=== PATIENT | female | born 1990 | race Caucasian/White ===

== ENCOUNTER → 2017-03-21 | Outpatient (REF) | payer MEDICAID, OTHER ==
[2017-03-22 19:53] LABS: CONTROL LINE UCG INT CTR LINE PRESENT
== END ==
LOC: M SFHCCAPE 14:34
PROVIDERS: ATTEND Physician Assistant
DX: R10.2 Pelvic and perineal pain (principal)

== ENCOUNTER → 2017-03-23 | Outpatient (CLI) | payer MEDICAID, OTHER ==
--- NOTE | 2017-03-23 11:57 | REP ---
Pelvic ultrasound including transabdominal, endovaginal and Doppler ultrasound assessment: The bladder is suboptimally distended. The uterus is anteverted and normal size measuring 6.4-0.5 x 2.9 cm. The endometrium is not thickened measuring 5 mm. The ovaries are normal size. Right ovary measures 3.8 x 2.6 x 3.2 cm. Left ovary measures 3.5 at 2.3 x 2.0 cm. There is a dominant 2.3 cm right ovarian follicle. There is a 1.1 cm left ovarian follicle. There is vascular flow in both ovaries. Doppler resistive index of intraparenchymal arteries on the right is 0.45 on the left 0.43. Impression: There is a 2.3 cm dominant right ovarian follicle. The 1.1 cm left ovarian follicle. Essentially negative pelvic ultrasound. Signed by Baljit Burris MD 03/23/2017 11:48 A
== END ==
LOC: M RAD 10:52
PROVIDERS: ATTEND Physician Assistant
DX: R10.2 Pelvic and perineal pain (principal)

== ENCOUNTER 2017-08-27 15:50 | Emergency (ER) | payer OTHER, MEDICAID ==
[2017-08-27] MEDS: NS 1,000 ML IV (18:42)
[2017-08-27 18:57] LABS: BASO % 0.5 % (0.0-1.0); EOS # 0.2 10^3/uL (0.0-0.50); EOS % 2.5 % (0.0-3.0); IMMATURE GRANULOCYTE % 0.2 % (0-0); LYMPH # 2.3 10^3/uL (1.5-6.5); LYMPH % 28.2 % (24.0-44.0); MEAN CORPUSCULAR HEMOGLOBIN 30.2 pg (27.0-33.0); MEAN CORPUSCULAR HGB CONC 33.2 g/dl (32.0-36.5); MONO # 0.8 10^3/uL (0.0-0.8); MONO % 9.7 % (0.0-5.0); NEUTROPHILS # 4.7 10^3/uL (1.8-7.7); NEUTROPHILS % 58.9 % (36.0-66.0); PLATELET COUNT, AUTOMATED 410 10^3/uL (150-450)
[2017-08-27 18:58] LABS: CONTROL LINE UCG INT CTR LINE PRESENT
[2017-08-27 19:16] LABS: ALBUMIN 4.3 GM/DL (3.2-5.2); ALBUMIN/GLOBULIN RATIO 1.16 (1.00-1.93); ALKALINE PHOSPHATASE 69 U/L (45-117); ALT/SGPT 23 U/L (12-78); ANION GAP 7 MEQ/L (8-16); AST/SGOT 18 U/L (7-37); BILIRUBIN,TOTAL 0.3 MG/DL (0.2-1.0); BLOOD UREA NITROGEN 15 MG/DL (7-18); CALCIUM LEVEL 8.6 MG/DL (8.5-10.1); CARBON DIOXIDE LEVEL 27 MEQ/L (21-32); CHLORIDE LEVEL 106 MEQ/L (98-107); CREATININE FOR GFR 0.83 MG/DL (0.55-1.02); GLOMERULAR FILTRATION RATE > 60.0 (>60); GLUCOSE, FASTING 80 MG/DL (70-105); POTASSIUM SERUM 3.5 MEQ/L (3.5-5.1); SODIUM LEVEL 140 MEQ/L (136-145)
[2017-08-27] MEDS ORDERED: ISOVUE-370 76% 100ML VIAL (Q9967) As Ordered (19:26)
[2017-08-27] MEDS: MAGNESIUM CITRATE 300 ML BTL PO (21:05)
[2017-08-27] MEDS: hydrOXYzine 25 MG TAB PO (21:06)
== END 2017-08-27 21:12 | disposition home or self-care (01) ==
LOC: M ED 15:50
DX: R10.9 Unspecified abdominal pain (principal); K59.00 Constipation, unspecified; F41.9 Anxiety disorder, unspecified; Z72.0 Tobacco use
CPT/HCPCS: Q9967

== ENCOUNTER 2018-02-07 21:32 | Emergency (ER) | payer OTHER ==
[2018-02-07 22:33] LABS: KETONE, URINE AUTO RFX 1+ mg/dL (NEGATIVE); LEUKOCYTE ESTERASE UR AUTO RFX 2+ (NEGATIVE); MUCUS, URINE RFX SMALL (NEGATIVE); NITRITE, URINE AUTO RFX NEGATIVE (NEGATIVE); RBC, URINE AUTO RFX 32 /HPF (0-3); SPECIFIC GRAVITY UR AUTO RFX 1.042 (1.002-1.035); SQUAM EPITHELIAL CELL UR AURFX 6 /HPF (0-6); WBC, URINE AUTO RFX 25 /HPF (0-3)
[2018-02-08] MEDS: CEPHALEXIN 500 MG CAP PO (02:15)
[2018-02-08] MEDS: valACYclovir HCL 500 MG TAB PO (02:15)
[2018-02-08] MEDS: PHENAZOPYRIDINE 100 MG TAB PO (02:15)
== END 2018-02-08 02:39 | disposition home or self-care (01) ==
LOC: M ED 21:32
DX: A60.00 Herpesviral infection of urogenital system, unspecified (principal); N39.0 Urinary tract infection, site not specified; J03.90 Acute tonsillitis, unspecified; Z72.0 Tobacco use; Z79.899 Other long term (current) drug therapy
CPT/HCPCS: 81001

== ENCOUNTER → 2019-02-19 | Outpatient (CLI) | payer OTHER ==
[~2019-02-19] MED LIST: AMOX500C; KEFL500C17 PO; NAPR-885; PYRI1TAB5 PO; VALA1TAB2 PO; ZOFR4TAB14
[2019-02-21 00:06] LABS: HSV IgM TYPES 1&2 <0.91 Ratio (0.00-0.90); HSV TYPE I IgG SPECIFIC <0.91 index (0.00-0.90); HSV TYPE II IgG SPECIFIC 9.21 index (0.00-0.90)
== END ==
LOC: M SMT 11:09
PROVIDERS: ATTEND Advanced Practice Midwife
DX: O36.80X0 Pregnancy with inconclusive fetal viability, not applicable or unspecified (principal); Z3A.00 Weeks of gestation of pregnancy not specified; Z11.3 Encounter for screening for infections with a predominantly sexual mode of transmission

== ENCOUNTER → 2019-02-21 | Outpatient (CLI) | payer OTHER | LOC: M SMT 10:48 | PROVIDERS: ATTEND Advanced Practice Midwife | DX: O36.80X0 Pregnancy with inconclusive fetal viability, not applicable or unspecified (principal); Z3A.00 Weeks of gestation of pregnancy not specified ==

== ENCOUNTER 2019-03-01 14:28 | Day surgery (SDC) | payer MEDICAID, OTHER, SELFPAY ==
[~2019-03-01] VITALS: Ht 157.5 cm; Wt 66.7 kg
[~2019-03-01 14:28] MED LIST changes: +DOXYCYCLINE HYCLATE 100 MG in D5W MINI-BAG PLUS 100 ML IV ONE; +LIDOCAINE 1% MDV 20ML VIAL SQ PRN; +LR 1,000 ML IV ONE
[2019-03-01] MEDS ORDERED: MIDAZOLAM INJ 2 MG/2 ML VIAL (J2250) As Ordered ONE (14:53)
[2019-03-01] MEDS ORDERED: dexameTHASONE 4 MG/ML 1ML VIAL (J1100) As Ordered ONE (14:54)
[2019-03-01] MEDS ORDERED: LIDOCAINE 2% INJ 100 MG/5 ML SDV (FOR ANES.) As Ordered ONE (14:54)
[2019-03-01] MEDS ORDERED: PROPOFOL 200 MG/20 ML VIAL As Ordered ONE (14:54)
[2019-03-01] MEDS ORDERED: fentaNYL 100 MCG/2 ML INJECTION (J3010) As Ordered ONE (14:54)
[2019-03-01] MEDS ORDERED: KETOROLAC 60 MG/2 ML VIAL (J1885) As Ordered ONE (14:54)
[2019-03-01 14:56] LABS: HEMATOCRIT 37.6 % (36.0-47.0); HEMOGLOBIN 12.7 g/dl (12.0-15.5); MEAN CORPUSCULAR HGB CONC 33.8 g/dl (32.0-36.5); MEAN CORPUSCULAR VOLUME 88.9 fl (80.0-96.0); PLATELET COUNT, AUTOMATED 345 10^3/uL (150-450); RED BLOOD COUNT 4.23 10^6/uL (4.00-5.40); WHITE BLOOD COUNT 10.4 10^3/uL (4.0-10.0)
[2019-03-01] MEDS ORDERED: METOCLOPRAMIDE INJ 10MG/2ML VIAL (J2765) As Ordered ONE (14:56)
[2019-03-01] MEDS ORDERED: ONDANSETRON 4MG/2ML VIAL (J2405) As Ordered ONE (14:59)
[2019-03-01] MEDS ORDERED: SILVER NITRATE APPLICATOR As Ordered ONE (15:33)
[2019-03-01] MEDS ORDERED: DOXYCYCLINE HYCLATE 100 MG TAB PO ONE (17:00)
[2019-03-01] MEDS ORDERED: PERCOCET 5MG/325MG TAB PO PRN (17:00)
[2019-03-01] MEDS ORDERED: ONDANSETRON 4MG/2ML VIAL (J2405) IV PRN (17:00)
[2019-03-01] MEDS ORDERED: fentaNYL 100 MCG/2 ML INJECTION (J3010) IV PRN (17:00)
[2019-03-01] MEDS ORDERED: HYDROMORPHONE HCL 0.5 MG/ 0.5 ML SYRINGE (J1170 PER 1) IV PRN (17:00)
[2019-03-01] MEDS ORDERED: LR 1,000 ML IV SCH ×2 (17:00)
--- NOTE | 2019-03-01 17:52 | RO ---
DATE OF PROCEDURE: 03/01/2019 PREOPERATIVE DIAGNOSIS: Missed AB, anembryonic demise POSTOPERATIVE DIAGNOSIS: Missed AB, anembryonic demise INTRAOPERATIVE FINDINGS: Intrauterine tissue consistent with products of conception. PROCEDURE PERFORMED: Suction D and C. SURGEON: Dr. Jolanta DO MATERIAL SPREADER: Omar Arellano, PGY-III SECOND MATERIAL SPREADER: Quan Guo OMS-III ANESTHESIA: General via LMA endotracheal. SPECIMENS TO PATHOLOGY: Products of conception plus intrauterine tissue. ESTIMATED BLOOD LOSS: 75 mL. FLUIDS REPLACED: 300 mL lactated Ringer's. DRAINS: In and out catheter 50 mL. COMPLICATIONS: None. PREOPERATIVE DIAGNOSIS: Preoperative antibiotics doxycycline 100 mg IV times 1. INDICATION: The patient is 28-year-old with a recently diagnosed missed / anembryonic gestation / blighted ovum. The expectant, medical and surgical management options were reviewed. She has elected proceed with surgical management via suction D & C. PROCEDURE: The patient was counseled and consented on the risks, benefits, indications, alternative procedure. Informed consent was obtained. She was taken to operating room with an IV running placed on operating table in dorsal supine position. General anesthesia was administered and the airway secured without any difficulty. She was placed in the high lithotomy position. She was prepared and draped in the normal sterile fashion. A time-out was performed per protocol. The bladder was drained with an in-and-out sterile catheter. The sterile speculum placed with good visualization of the cervix. The anterior lip of cervix grasped single-tooth tenaculum and downward traction was applied. The cervix was sequentially dilated up to a number #20. The size 9 Vacurette was then placed transcervical into the intrauterine cavity and suction was applied. Multiple passes of the Vacurette were performed until there was minimal blood and tissue return. The Vacurette was removed. This sharp curette was placed transcervical into the intracavity a sharp curettage performed throughout the cavity until gritty texture was noted throughout one additional pass of the Vacurette was performed with minimal tissue and blood return. The Vacurette was removed. Minimal bleeding from the cervical os was noted. The single-tooth tenaculum was removed. Tenaculum sites were noted be hemostatic. All instruments were removed from vagina. Sponge, needle and sponge counts were correct per protocol. The patient was transferred. The patient tolerated the entire very well. She was transferred back in good stable condition. GURPREET
[2019-03-01 18:10] VITALS: BP 115/72
== END 2019-03-01 18:10 | disposition home or self-care (01) ==
LOC: M SDC 14:28
PROVIDERS: ATTEND Obstetrics & Gynecology
DX: O02.1 Missed abortion (principal)
CPT/HCPCS: 36415; 59820; 85027; 86850; 86900; 86901; 88305; J1100; J1885; J2250; J2405; J2765; J3010

== ENCOUNTER → 2019-06-21 | Outpatient (CLI) | payer MEDICAID, OTHER ==
[~2019-06-21] MED LIST changes: -DOXYCYCLINE HYCLATE 100 MG in D5W MINI-BAG PLUS 100 ML IV ONE; -LIDOCAINE 1% MDV 20ML VIAL SQ PRN; -LR 1,000 ML IV ONE
[2019-06-21 13:39] LABS: BASO % 0.2 % (0.0-1.0); EOS # 0.1 10^3/uL (0.0-0.5); EOS % 1.2 % (0.0-3.0); HEMATOCRIT 37.1 % (36.0-47.0); HEMOGLOBIN 12.2 g/dl (12.0-15.5); LYMPH # 1.8 10^3/uL (1.5-5.0); LYMPH % 19.3 % (24.0-44.0); MEAN CORPUSCULAR HEMOGLOBIN 29.7 pg (27.0-33.0); MEAN CORPUSCULAR HGB CONC 32.9 g/dl (32.0-36.5); MEAN CORPUSCULAR VOLUME 90.3 fl (80.0-96.0); MONO # 0.5 10^3/uL (0.0-0.8); MONO % 4.8 % (0.0-5.0); NEUTROPHILS # 6.9 10^3/uL (1.5-8.5); NEUTROPHILS % 74.2 % (36.0-66.0); PLATELET COUNT, AUTOMATED 343 10^3/uL (150-450); RED BLOOD COUNT 4.11 10^6/uL (4.00-5.40); WHITE BLOOD COUNT 9.4 10^3/uL (4.0-10.0)
[2019-06-21 14:57] LABS: HEPATITIS C VIRUS ABY INDEX 0.1 INDEX (<0.8); HIV 1&2 SCREEN CENTAUR NEGATIVE (NEGATIVE); RUBELLA IgG QUALITATIVE SUSCEPTIBLE (IMMUNE)
[2019-06-21 15:13] LABS: CHLAMYDIA DNA AMPLIFICATION NEGATIVE (NEGATIVE); GC DNA AMPLIFICATION NEGATIVE (NEGATIVE)
== END ==
LOC: M SMT 10:29
PROVIDERS: ATTEND Advanced Practice Midwife
DX: Z34.81 Encounter for supervision of other normal pregnancy, first trimester (principal)

== ENCOUNTER → 2019-07-09 | Outpatient (CLI) | payer OTHER ==
--- NOTE | 2019-07-10 05:58 | REP ---
Clinical: Dating and viability. Technique: Transabdominal first trimester obstetrical ultrasound with color Doppler evaluation. Findings: Single live early intrauterine identified. CRL of 5.7 cm corresponds to 12 weeks 2 days gestational age with estimated date of delivery 01/19/2020. heart rate equals 153 beats per minute. Cervix measures 3.5 cm in length and appears closed. Impression: Single live early intrauterine at 12 weeks 2 days gestational age. Electronically Signed by Jason Dumont MD 07/10/2019 05:48 A
== END ==
LOC: M RAD 10:16
PROVIDERS: ATTEND Advanced Practice Midwife
DX: Z34.81 Encounter for supervision of other normal pregnancy, first trimester (principal); N83.291 Other ovarian cyst, right side

== ENCOUNTER → 2019-07-24 | Outpatient (CLI) | payer OTHER | LOC: M SMT 15:29 | PROVIDERS: ATTEND Advanced Practice Midwife | DX: Z36.0 Encounter for antenatal screening for chromosomal anomalies (principal) ==

== ENCOUNTER → 2019-08-26 | Outpatient (CLI) | payer OTHER ==
[~2019-08-26] MED LIST changes: -VALA1TAB2 PO; +VALA1TAB64 PO
--- NOTE | 2019-08-26 12:13 | REP ---
OB ULTRASOUND: Real-time sonographic evaluation of the gravid uterus performed. There is a single intrauterine gestation with an estimated gestational age of 19 weeks 1 day EDC 01/19/2020. Today's measurements indicate appropriate growth. Biometry and Growth: BPD 46 mm = 20 weeks 0 days, 72nd percentile HC 174 mm = 20 weeks 0 days, 76th percentile AC 144 mm = 19 weeks 5 days, 64th percentile FL 32 mm = 20 weeks 0 days, 72nd percentile HC/AC ratio 1.21 within normal range. Estimated weight 318 grams 76th percentile. SEEN/GROSSLY UNREMARKABLE Lateral ventricles Yes Posterior fossa Yes Upper lip Yes Four-chamber heart Yes LVOT Yes RVOT Yes Stomach Yes Cord insertion Yes Three vessel cord Yes Kidneys No Bladder Yes Spine No Cervical length: Closed and measures 3.1 cm in length. heart rate: 157 beats per minute. position: Variable. Placenta: Anterior and grade 0 with no previa or abruption. Amniotic fluid: Within normal limits. Electronically Signed by Baljit Jc MD 08/26/2019 01:24 P
== END ==
LOC: M RAD 10:43
PROVIDERS: ATTEND Advanced Practice Midwife
DX: Z34.82 Encounter for supervision of other normal pregnancy, second trimester (principal)

== ENCOUNTER → 2019-09-09 | Outpatient (CLI) | payer OTHER ==
--- NOTE | 2019-09-09 19:42 | REP ---
Clinical: Anatomical evaluation. Comparison: 08/26/2019 . Findings: Examination demonstrates a single live intrauterine in breech presentation. motion is identified by technologist. Placenta is noted anterior and grade zero without evidence for placenta previa or abruption. Amniotic fluid volume is normal. Cervix measures 3.2 cm in length and appears closed. No evidence for nuchal cord. Gestational age by LMP 21 weeks 1 day with LUCAS 01/19/2020 . Gestational age by current measurements 21 weeks 1 day with LUCAS 01/19/2020 . FHR equals 151 beats per minute. BPD 5.3 cm 22 weeks 0 days HC 19.0 cm 21 weeks 2 days AC 16.6 cm 21 weeks 4 days FL 3.4 cm 20 weeks 5 days HL 3.0 cm 19 weeks 6 days HC/AC ratio 1.14 Estimated weight 410 grams ( 51st percentile). Anatomical assessment demonstrates normal structures including cranium, choroid plexus, cavum, cerebellum/posterior fossa, facial features, lungs, four-chamber heart/ventricular outflow tracts, diaphragm, stomach, cord insertion/three-vessel cord, kidneys/bladder, and extremities. Impression: Single live intrauterine in breech presentation demonstrating appropriate interval growth. 2. Limited evaluation of the spine. Remainder of the anatomical assessment is complete and normal. Electronically Signed by Jason Dumont MD 09/09/2019 07:33 P
== END ==
LOC: M RAD 11:47
PROVIDERS: ATTEND Advanced Practice Midwife
DX: Z34.92 Encounter for supervision of normal pregnancy, unspecified, second trimester (principal)

== ENCOUNTER → 2019-10-02 | Outpatient (CLI) | payer OTHER ==
[2019-10-02 13:53] LABS: HEMATOCRIT 35.4 % (36.0-47.0); HEMOGLOBIN 10.9 g/dl (12.0-15.5); MEAN CORPUSCULAR HEMOGLOBIN 28.5 pg (27.0-33.0); MEAN CORPUSCULAR HGB CONC 30.8 g/dl (32.0-36.5); MEAN CORPUSCULAR VOLUME 92.4 fl (80.0-96.0); PLATELET COUNT, AUTOMATED 369 10^3/uL (150-450); RED BLOOD COUNT 3.83 10^6/uL (4.00-5.40); WHITE BLOOD COUNT 14.4 10^3/uL (4.0-10.0)
== END ==
LOC: M PLALAB 10:51
PROVIDERS: ATTEND Advanced Practice Midwife
DX: Z34.82 Encounter for supervision of other normal pregnancy, second trimester (principal)

== ENCOUNTER → 2019-11-11 | Outpatient (CLI) | payer OTHER ==
[~2019-11-11] MED LIST changes: +VALA1TAB5 PO; -VALA1TAB64 PO
--- NOTE | 2019-11-12 06:53 | REP ---
Clinical: Anatomical evaluation. Comparison: 09/09/2019 . Findings: Examination demonstrates a single live intrauterine in cephalic presentation. motion is identified by technologist. Placenta is noted anterior and grade I I without evidence for placenta previa or abruption. Amniotic fluid volume is normal. Cervix measures 3.0 cm in length and appears closed. No evidence for nuchal cord. Gestational age by LMP 30 weeks 1 day with LUCAS 01/19/2020 . Gestational age by current measurements 31 weeks 1 day with LUCAS 01/12/2020 . FHR equals 146 beats per minute. Estimated weight 1704 grams ( 65th percentile). Amniotic fluid index: 12.4 cm (9.0 - 23.4) Anatomical assessment demonstrates normal structures including cranium, choroid plexus, cavum, four-chamber heart, stomach, three-vessel cord, kidneys/bladder, and spine. Impression: single live intrauterine in cephalic presentation demonstrating appropriate interval growth. In conjunction with prior examination anatomical assessment is complete and normal.
== END ==
LOC: M WHC 09:39
PROVIDERS: ATTEND Advanced Practice Midwife
DX: Z34.82 Encounter for supervision of other normal pregnancy, second trimester (principal)

== ENCOUNTER → 2019-12-25 | Outpatient (REF) | payer OTHER | LOC: M SFHCWAGY 14:48 | PROVIDERS: ATTEND Advanced Practice Midwife | DX: O98.313 Other infections with a predominantly sexual mode of transmission complicating pregnancy, third trimester (principal) ==

== ENCOUNTER 2020-01-11 23:31 | Inpatient (IN) | payer OTHER ==
[~2020-01-11] VITALS: Ht 160 cm; Wt 78.8 kg
[2020-01-11 23:55] VITALS: BP 125/82
[2020-01-12] VITALS (41 sets, daily range): BP systolic 93–164; BP diastolic 54–110
[2020-01-12] MEDS ORDERED: VALT500T PO (00:01)
[2020-01-12] MEDS ORDERED: PRENTAB9 PO (00:01)
[2020-01-12 00:35] LABS: HEMATOCRIT 35.9 % (36.0-47.0); HEMOGLOBIN 11.5 g/dl (12.0-15.5); MEAN CORPUSCULAR HEMOGLOBIN 27.6 pg (27.0-33.0); MEAN CORPUSCULAR VOLUME 86.1 fl (80.0-96.0); PLATELET COUNT, AUTOMATED 312 10^3/uL (150-450); RED BLOOD COUNT 4.17 10^6/uL (4.00-5.40); WHITE BLOOD COUNT 11.9 10^3/uL (4.0-10.0)
[2020-01-12] MEDS ORDERED: PROMETHAZINE INJ 25 MG/ML VIAL (J2550) IV PRN (02:00)
[2020-01-12] MEDS ORDERED: BUTORPHANOL 2 MG/ML INJ (J0595) IV ONE (02:00)
[2020-01-12] MEDS ORDERED: LR 500 ML IV ONE (03:53)
[2020-01-12] MEDS ORDERED: FENTANYL 2MCG/ML ROPIVACAINE 0.2% IN 0.9% NACL 100ML IVBAG As Ordered ONE (03:55)
[2020-01-12] MEDS ORDERED: NALOXONE INJ 0.4MG/1ML VIAL (J2310 PER 1MG) IV PRN (05:15)
[2020-01-12] MEDS ORDERED: ONDANSETRON 4MG/2ML VIAL IV PRN (05:15)
[2020-01-12] MEDS ORDERED: REFRIGERATOR IV KEYS XX PRN (05:15)
[2020-01-12] MEDS ORDERED: FENTANYL/ROPIVACAINE/NACL BAG 100 ML EPIDURAL SCH (05:15)
[2020-01-12] MEDS ORDERED: LR 1,000 ML IV SCH (05:15)
[2020-01-12] MEDS ORDERED: LACTATED RINGER'S 1000 ML IV PRN (05:15)
[2020-01-12] MEDS ORDERED: diphenhydrAMINE 50MG/ML VIAL (J1200) IV PRN (05:15)
[2020-01-12] MEDS ORDERED: EPIDURAL/PCA KEYS XX PRN (05:15)
[2020-01-12] MEDS ORDERED: EPIDURAL COMMENT XX SCH (05:15)
[2020-01-12] MEDS ORDERED: ePHEDrine SULFATE 25 MG/5 ML(5MG/ML) SYRINGE IV PRN (05:15)
[2020-01-12] MEDS ORDERED: OXYTOCIN 30 UNITS IN 0.9% NaCl 500ML IV BAG (J2590) As Ordered ONE (10:27)
[2020-01-12] MEDS ORDERED: METHYLERGONOVINE MALEATE 0.2 MG TAB PO PRN (15:15)
[2020-01-12] MEDS ORDERED: ACETAMINOPHEN 500 MG TAB PO PRN (15:15)
[2020-01-12] MEDS ORDERED: RHOGAM 300 MCG (1500 IU) INJ (J2790) IM SCH (15:15)
[2020-01-12] MEDS ORDERED: ACETAMINOPHEN TAB 650MG DOSE (2X325MG) PO PRN (15:15)
[2020-01-12] MEDS ORDERED: MOM 30ML SUSPENSION UDC PO PRN (15:15)
[2020-01-12] MEDS ORDERED: DIBUCAINE 1% OINTMENT 30GM TOP PRN (15:15)
[2020-01-12] MEDS ORDERED: IBUPROFEN 600 MG TAB PO PRN (15:15)
[2020-01-12] MEDS ORDERED: ANUSOL HC CREAM 30GM TOP PRN (15:15)
[2020-01-12] MEDS ORDERED: DOCUSATE SODIUM 100 MG CAP PO PRN (15:15)
[2020-01-12] MEDS ORDERED: MEASLES,MUMPS,RUBELLA VACCINE INJ (MMR-II) (90707) SC SCH (15:15)
[2020-01-12] MEDS ORDERED: AMPICILLIN SOD/SULBACTAM SOD 3 GM in D5W MINI-BAG PLUS 100 ML IV ONE (15:30)
[2020-01-12] MEDS ORDERED: OXYTOCIN DRIP 30 UNITS in IV 1 EA IV SCH (15:30)
--- NOTE | 2020-01-12 15:30 | HPEPDOC ---
Obstetrical History & Physical General Date of Admission January 12, 2020 at 00:11 History of Present Illness 29-year-old 3, para 0, presents at 39 weeks 0 days estimated gestational age by last which appeared confirmed by ultrasound with complaints of leakage of fluid at 2200 last night. She reports active movements. Reports contractions. Denies any vaginal bleeding. Her course is unremarkable. 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 BREAST: . ABDOMEN: Gravid and non-tender to touch. FETUS: Is vertex (VTX) by sterile vaginal examination (SVE), fetus is vertex (VTX) by Gasper. HEART RATE: Regular rate and rhythm. Vital Signs/I&O Vital Signs Date Time Temp Pulse Resp B/P (MAP) Pulse Ox O2 Delivery O2 Flow Rate FiO2 01/12/20 11:13 76 18 137/71 (93) 01/12/20 10:51 97.8 01/12/20 04:35 Room Air 01/12/20 03:00 100 I&O- Last 24 Hours up to 6 AM 01/12/20 06:00 Intake Total 900 ml Balance 900 ml Laboratory Data 24H LABS Laboratory Tests 2 01/12/20 00:18: Serology Scanned Report Hepatitis B Testing 01/12/20 00:27: Nucleated Red Blood Cells % (auto) 0.0 CBC/BMP Laboratory Tests 01/12/20 00:27 Pertinent Laboratoy Data Blood Type: O- RBC Antibody Screen: Negative HIV: Negative Hepatitis B: Negative Rapid Plasma Reagin: Nonreactive Rubella: Nonreactive Chlamydia/Gonorrhea: Negative Group B Streptococcus: Positive Anatomy Ultrasound Placenta Location: Anterior Normal Anatomy: Yes Vaginal Examination Dilation: 5 cm (grossly ruptured. Nitrazine positive.) Effacement: 70% Station: -2 Cervical Consistency: Soft Cervical Position: Anterior Assessment Variability: Moderate Tocometer Contractions: Yes Frequency: regular Assessment/Plan Assessment 29-year-old 3, para 0 at 39 weeks with spontaneous rupture membranes. Reassuring status. 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 Diet: . Group B Streptococcus (GBS) [negative]. Labs and intravenous (IV) per unit protocol. Counseled on Pitocin and induction of labor (IOL). Lactated Ringers (LR): Bolus mL, then at mL/hr. Anticipate [normal spontaneous delivery ()]. C-S as appropriate. REGGIE ENRIQUEZ MD. January 12, 2020 15:30
--- NOTE | 2020-01-12 15:35 | DNPDOC ---
[facility] Delivery Note Delivery Note DATE OF DELIVERY: 01/12/2020 TIME OF : 1448 GENDER:, Female. APGARS:, 9 and 9. WEIGHT: 2898 grams or 6 pounds 6 ounces. LACERATIONS: None ANESTHESIA: Epidural. ESTIMATED BLOOD LOSS: 300ml COUNTS: 5 laparotomy sponges accounted for prior to after delivery. COMPLICATION: Avulsion of umbilical cord with manual removal of placenta DELIVERY NOTE:. On 01/12/2020, at 1448 ounces, Ms. Kate a 29-year-old 3, now para 1, had a spontaneous vaginal delivery of viable female , Apgars, 9 and 9. Weight was 2898 g, 6 lbs. 6 oz. Head was delivered occiput anterior (OA) over intact perineum, followed by delivery of the shoulders and corpus. Infant was handed to mom with a good cry. Cord was clamped times two and was cut by the father of baby under my direction. Placenta was then drained.during delivery of placenta, there was an avulsion of the umbilical cord. This required manual removal. On inspection, placenta appeared to be intact. A second sweep was performed with removal of of trailing membranes. A premixed bag of 500 mL of normal saline with 30 units of Pitocin was then bolused along with uterine massage until the uterus was firm. On inspection, cervix, vagina, perineum was grossly intact and hemostatic. Mom and baby in recovery on stable condition. REGGIE ENRIQUEZ MD. January 12, 2020 15:35
[2020-01-12] MEDS: IBUPROFEN 800 MG TAB PO PRN ×2 (16:32→20:08)
[2020-01-13 06:18] VITALS: BP 112/64
--- NOTE | 2020-01-13 07:50 | IPNPDOC ---
Progress Note Date of Service: January 13, 2020 Day#: 1 Progress Note SUBJECT: Doing well without complaints. Ambulating, voiding and minimal lochia. Spinal headache which is been addressed. Anesthesia this was +breast feeding OBJECTIVE: VITAL SIGNS: Within normal limits, afebrile. Alert and oriented times three. Abdomen: Fundus firm at U-2. Soft, NTTP. Ext: neg calf tenderness. ASSESSMENT: day #1 status post normal spontaneous vaginal delivery and retained placenta. Recovering in stable condition. PLAN: 1. Continue routine care 2. Discharge plans for tomorrow VS, I&O, 24H, Fishbone Vital Signs/I&O Vital Signs Date Time Temp Pulse Resp B/P (MAP) Pulse Ox O2 Delivery O2 Flow Rate FiO2 01/13/20 06:18 97.5 57 14 112/64 (80) 01/12/20 04:35 Room Air 01/12/20 03:00 100 I&O- Last 24 Hours up to 6 AM 01/13/20 06:00 Intake Total 2128.5 ml Output Total 1200 ml Balance 928.5 ml REGGIE ENRIQUEZ MD. January 13, 2020 07:50
[2020-01-13] MEDS: PRENATAL VITAMINS CHEWABLE TABLET PO SCH (08:50)
[2020-01-13] MEDS ORDERED: fentaNYL 100 MCG/2 ML INJECTION (J3010) As Ordered ONE (10:21)
[2020-01-13] MEDS ORDERED: fentaNYL 100 MCG/2 ML INJECTION (J3010) IV ONE (10:30)
[2020-01-13] MEDS ORDERED: LR 500 ML IV ONE (11:15)
[2020-01-13 11:33] VITALS: BP 120/73
[2020-01-13] MEDS ORDERED: FIORICET TAB PO PRN ×2 (15:30)
[2020-01-13] MEDS: IBUPROFEN 800 MG TAB PO PRN (17:31)
[2020-01-13 17:37] VITALS: BP 113/60
[2020-01-14 06:00] VITALS: BP 133/63
[2020-01-14 07:20] VITALS: BP 133/63
[2020-01-14] MEDS: PRENATAL VITAMINS CHEWABLE TABLET PO SCH (10:41)
== END 2020-01-14 12:20 | disposition home or self-care (01) | DRG 541 ==
LOC: M LDO 23:31 → M LDI 01-12 00:11 → M OBS 01-12 16:51
PROVIDERS: ADMIT Obstetrics & Gynecology; ATTEND Obstetrics & Gynecology
PROC: 10E0XZZ Delivery of Products of Conception, External Approach (ICD-10-PCS; principal; 2020-01-12)
PROC: 10D17Z9 Manual Extraction of Products of Conception, Retained, Via Natural or Artificial Opening (ICD-10-PCS; 2020-01-12)
DX: O73.0 Retained placenta without hemorrhage (principal); O69.89X0 Labor and delivery complicated by other cord complications, not applicable or unspecified; Z3A.39 39 weeks gestation of pregnancy; Z37.0 Single live birth

== ENCOUNTER → 2020-12-01 | Outpatient (REF) | payer OTHER ==
[~2020-12-01] MED LIST changes: +PRENTAB9 PO; +VALT500T PO
[2020-12-01 15:40] LABS: CHLAMYDIA DNA AMPLIFICATION NEGATIVE (NEGATIVE); GC DNA AMPLIFICATION NEGATIVE (NEGATIVE)
== END ==
LOC: M SFHCWAGY 13:36
PROVIDERS: ATTEND Nurse Practitioner Women's Health
DX: Z11.3 Encounter for screening for infections with a predominantly sexual mode of transmission (principal)

== ENCOUNTER 2023-07-14 23:42 | Emergency (ER) | payer OTHER ==
[~2023-07-14] VITALS: Ht 160 cm; Wt 60.8 kg
[2023-07-14 23:43] VITALS: BP 125/81; TEMP 98.1; O2SAT 100
== END 2023-07-15 03:53 | disposition left against medical advice (07) ==
LOC: M ED 23:42
DX: Z53.21 Procedure and treatment not carried out due to patient leaving prior to being seen by health care provider (principal)